=== PATIENT | female | born 1990 | race Two or more races ===

== ENCOUNTER 2019-01-03 06:59 | Inpatient (IN) | payer BC ==
[~2019-01-03] VITALS: Ht 157.5 cm; Wt 56.7 kg
[2019-01-03] MEDS ORDERED: LIDOCAINE VISCOUS 2% UD 15 ML UDC ONE (07:29)
[2019-01-03] MEDS ORDERED: IV NS 0.9% 1,000 ML BAG IV ONE (07:30)
[2019-01-03] MEDS ORDERED: MAG HYDROX/AL HYDROX/SIMETH 30 ML UDC PO ONE (07:30)
[2019-01-03] MEDS ORDERED: LIDOCAINE VISCOUS 2% UD 15 ML UDC MM ONE (07:30)
[2019-01-03] MEDS ORDERED: MAG HYDROX/AL HYDROX/SIMETH 30 ML UDC ONE (07:30)
[2019-01-03] MEDS ORDERED: KETOROLAC TROMETHAMINE INJ 30 MG/ML VIAL ONE (07:30)
--- NOTE | 2019-01-03 07:35 | NUR ---
REPORT GIVEN TO JOE SHORT FOR KASIA
[2019-01-03] MEDS: KETOROLAC TROMETHAMINE INJ 30 MG/ML VIAL IV ONE ×2 (07:39→07:51)
[2019-01-03 07:43] LABS: BASOPHILS % (AUTO) 1.1 % (0.0-2.0); EOSINOPHILS % (AUTO) 2.3 % (0.0-6.0); HEMATOCRIT 39 % (33-45); HEMOGLOBIN 13.1 g/dL (11.5-14.8); LYMPHOCYTES % (AUTO) 35.4 % (20.0-44.0); MEAN CORPUSCULAR HGB CONC 33 g/dl (31.0-36.0); MEAN CORPUSCULAR VOLUME 91 fL (82-100); MONOCYTES # (AUTO) 0.3 /CMM (0.1-1.30); MONOCYTES % (AUTO) 10.9 % (2.0-12.0); NEUTROPHILS # (AUTO) 1.4 /CMM (1.8-8.9); NEUTROPHILS % (AUTO) 50.3 % (43.0-81.0); PLATELET COUNT (AUTO) 248 /CMM (150-450); RED BLOOD CELL COUNT(AUTO) 4.33 MIL/uL (4.0-5.2); WHITE BLOOD COUNT (AUTO) 2.8 K/uL (4.3-11.0)
--- NOTE | 2019-01-03 07:50 | NUR ---
RADIOLOGY AT BEDSIDE FOR CHEST XRAY.
[2019-01-03 07:51] LABS: CALCIUM, SERUM 8.8 mg/dL (8.5-10.1); CREATININE 0.8 mg/dL (0.6-1.3); POTASSIUM 3.8 mmol/L (3.5-5.1)
[2019-01-03 07:57] LABS: ALBUMIN 3.3 g/dL (3.4-5.0); BILIRUBIN,DIRECT 0.1 mg/dL (0.0-0.2); BILIRUBIN,TOTAL 0.4 mg/dL (0.2-1.0); TOTAL PROTEIN, SERUM 7.2 g/dL (6.4-8.2)
[2019-01-03 08:04] LABS: D-DIMER 0.33 mg/L(FEU (0.17-0.50)
[2019-01-03] MEDS ORDERED: NITROGLYCERIN 0.4 MG/TAB BOTTLE ONE ×2 (08:18→10:04)
[2019-01-03] MEDS ORDERED: ASPIRIN 325 MG TABLET ONE (08:18)
--- NOTE | 2019-01-03 08:24 | NUR ---
DR TORIBIO AT BEDSIDE FOR EVAL.
[2019-01-03] MEDS ORDERED: METOPROLOL TARTRATE INJ 5 MG/5 ML AMPUL IV ONE ×2 (08:30→09:00)
[2019-01-03] MEDS ORDERED: ASPIRIN 325 MG TABLET PO ONE (08:30)
[2019-01-03] MEDS ORDERED: NITROGLYCERIN 0.4 MG/TAB BOTTLE SL ONE (08:30)
[2019-01-03] MEDS ORDERED: ENOXAPARIN SODIUM 40 MG/0.4 ML DISP.SYRIN SQ ONE (08:30)
--- NOTE | 2019-01-03 08:34 | NUR ---
U/S TECH AT BEDSIDE FOR ECHOCARGIOGRAM
[2019-01-03] MEDS ORDERED: ENOXAPARIN SODIUM 60 MG/0.6 ML DISP.SYRIN SQ ONE (08:36)
[2019-01-03] MEDS ORDERED: METOPROLOL TARTRATE INJ 5 MG/5 ML AMPUL ONE ×2 (08:42→10:03)
[2019-01-03 09:31] LABS: APPEARANCE,URINE Clear (CLEAR); BILIRUBIN,URINE SMALL (NEGATIVE); BLOOD, URINE Negative Ery/uL (NEGATIVE); COLOR,URINE Yellow (YELLOW); KETONES,URINE Trace (NEGATIVE); LEUKOCYTE ESTERASE ,URINE Negative (NEGATIVE); NITRITE, URINE Negative (NEGATIVE); PH,URINE 6.5 (5.0-8.0); PROTEIN,URINE 30 mg/dl (NEGATIVE); UGLUCOSE Negative (NEGATIVE); UROBILINOGEN,URINE 0.2 EU/dL (0.2)
[2019-01-03 09:53] LABS: RBC,URINE 0-2 /HPF (0-2); WBC,URINE 0-2 /HPF (0-3)
[2019-01-03 09:54] LABS: BACTERIA,URINE Rare /HPF (None Seen); SQUAMOUS EPITHELIAL CELL,UR Rare /HPF (None Seen)
[2019-01-03 09:57] LABS: CALCIUM OXALATE CRYSTALS,UR Moderate /HPF (None Seen)
[2019-01-03] MEDS ORDERED: IV NS 0.9% 250 ML IV ONE (10:01)
[2019-01-03] MEDS ORDERED: IOHEXOL-350 100 ML VIAL IV ONE (10:01)
[2019-01-03] MEDS ORDERED: CT SWABBABLE VALVE TRANS SET 1 EA INFUS.SET MC ONE (10:01)
--- NOTE | 2019-01-03 10:02 | NUR ---
PT TO RADIOLOGY FOR CT CARDIAC ANGIOGRAM VIA [facility].
--- NOTE | 2019-01-03 10:09 | NUR ---
REPORT GIVEN TO OLIVIA. PT AWAITING TRANSFER TO FLOOR.
[2019-01-03] MEDS ORDERED: MAG HYDROX/AL HYDROX/SIMETH 30 ML UDC PO PRN (11:00)
[2019-01-03] MEDS ORDERED: ZOLPIDEM TARTRATE 5 MG TABLET PO PRN (11:00)
[2019-01-03] MEDS ORDERED: ONDANSETRON HCL/PF 4 MG/2 ML VIAL IVP PRN (11:00)
[2019-01-03] MEDS ORDERED: HYDROCODONE/APAP 5/325MG 1 EACH TABLET PO PRN (11:00)
[2019-01-03] MEDS ORDERED: MAGNESIUM HYDROXIDE 30 ML UDC PO PRN (11:00)
[2019-01-03] MEDS ORDERED: ACETAMINOPHEN 325 MG TABLET PO PRN (11:00)
[2019-01-03] MEDS ORDERED: Z GUARD REMEDY 2 OZ OINT TP PRN (11:00)
[2019-01-03] MEDS ORDERED: IV NS 0.9% 500 ML IV ONE (11:04)
--- NOTE | 2019-01-03 11:17 | NUR ---
TRANSFERED TO FLOOR IN STABLE CONDITION.
[2019-01-03] MEDS ORDERED: ENOXAPARIN SODIUM 40 MG/0.4 ML DISP.SYRIN SQ SCH (11:30)
--- NOTE | 2019-01-03 11:30 | NUR ---
OILER HELPER OPENING NOTES RECEIVED PATIENT IN STABLE CONDITION. IN NO APPARENT DISTRESS. BEDSIDE RAILS ARE UPX2. BED IS LOCKED AND LOWERED. CALL LIGHT IS WITHIN REACH. IV LINE IS INTACT AND PATENT. WILL CONTINUE TO MONITOR PATIENT.
[2019-01-03] MEDS ORDERED: TAZA30CR TD (11:31)
[2019-01-03] MEDS ORDERED: DOXY50TA13 PO (11:31)
[2019-01-03] MEDS ORDERED: SPIR50TA5 PO (11:31)
[2019-01-03 12:00] VITALS: BP 103/53
[2019-01-03] MEDS: INDOMETHACIN 25 MG CAPSULE PO SCH ×2 (12:23→16:59)
[2019-01-03] MEDS: AMOXICILLIN TRIHYDRATE 250 MG CAPSULE PO SCH ×2 (15:02→21:29)
[2019-01-03 16:00] VITALS: BP 92/62
--- NOTE | 2019-01-03 18:52 | NUR ---
BUILDING SUPPLIES SALESPERSON RETAIL CLOSING NOTES PATIENT RESTING IN STABLE CONDITION. IN NO APPARENT DISTRESS. BEDSIDE RAILS ARE UPX2. BED IS LOCKED AND LOWERED. CALL LIGHT IS WITHIN REACH. IV LINE IS INTACT AND PATENT. WILL ENDORSE CARE TO NIGHT [facility] NURSE FOR KASIA.
--- NOTE | 2019-01-03 19:30 | NUR ---
RN NOTES RECEIVED PT. AWAKE ON BED, A/OX4, AMBULATORY, SR ON TELE MONITOR [id number], DENIES ANY PAIN, NO SOB, CALL LIGHT WITHIN REACH, [id number], CONTINUE TO MONITOR
[2019-01-03 20:00] VITALS: BP 99/68
[2019-01-04] VITALS: BP 94/59
[2019-01-04 04:00] VITALS: BP 92/54
[2019-01-04] MEDS: AMOXICILLIN TRIHYDRATE 250 MG CAPSULE PO SCH (05:35)
--- NOTE | 2019-01-04 06:26 | NUR ---
RN NOTES SLEEPING BUT AROUSABLE, DENIES PAIN, NO SOB, CALL LIGHT WITHIN REACH, [id number], PT. NEEDS ATTENDED
[2019-01-04 07:11] LABS: BASOPHILS # (AUTO) 0.1 /CMM (0.0-0.2); BASOPHILS % (AUTO) 2.3 % (0.0-2.0); EOSINOPHILS % (AUTO) 4.1 % (0.0-6.0); HEMATOCRIT 39 % (33-45); HEMOGLOBIN 12.8 g/dL (11.5-14.8); LYMPHOCYTES # (AUTO) 1.5 /CMM (0.8-4.8); LYMPHOCYTES % (AUTO) 56.8 % (20.0-44.0); MEAN CORPUSCULAR HGB CONC 33 g/dl (31.0-36.0); MEAN CORPUSCULAR VOLUME 91 fL (82-100); MONOCYTES # (AUTO) 0.4 /CMM (0.1-1.30); MONOCYTES % (AUTO) 14.1 % (2.0-12.0); NEUTROPHILS # (AUTO) 0.6 /CMM (1.8-8.9); NEUTROPHILS % (AUTO) 22.7 % (43.0-81.0); PLATELET COUNT (AUTO) 241 /CMM (150-450); RED BLOOD CELL COUNT(AUTO) 4.25 MIL/uL (4.0-5.2); WHITE BLOOD COUNT (AUTO) 2.6 K/uL (4.3-11.0)
--- NOTE | 2019-01-04 07:11 | NUR ---
TEXTILE COLORIST FORMULATOR NOTES PATIENT IN BED ALERT ORIENTED X 4. NO ACUTE DISTRESS NOTED. BREATHING UNLABORED. DENIED ANY PAIN. IV ACCESS PATENT AND INTACT, NO REDNESS OR SWELLING NOTED. SAFETY MEASURES IN PLACE. CALL LIGHT WITHIN REACH. WILL CONTINUE TO MONITOR ACCORDINGLY.
[2019-01-04] MEDS ORDERED: PANTOPRAZOLE 40 MG TABLET.DR PO SCH (07:30)
[2019-01-04 07:34] LABS: CALCIUM, SERUM 8.9 mg/dL (8.5-10.1); CREATININE 0.8 mg/dL (0.6-1.3); MAGNESIUM 2.4 mg/dL (1.8-2.4); PHOSPHORUS 4.2 mg/dL (2.5-4.9); POTASSIUM 4.1 mmol/L (3.5-5.1)
[2019-01-04 08:00] VITALS: BP 98/66
--- NOTE | 2019-01-04 08:45 | NUR ---
VEGETABLE FARM WORKER NOTES SEEN AND EVALUATED BY DR GALE TORIBIO WITH NEW ORDERS MADE, NOTED AND CARRIED OUT.
[2019-01-04] MEDS: INDOMETHACIN 25 MG CAPSULE PO SCH (08:58)
[2019-01-04] MEDS ORDERED: ENOXAPARIN SODIUM 40 MG/0.4 ML DISP.SYRIN SQ SCH (09:00)
[2019-01-04] MEDS ORDERED: IBUP-1955 PO (09:39)
--- NOTE | 2019-01-04 09:46 | NUR ---
MS RN NOTES SEEN AND EVALUATED BY DR HOYT WITH NEW ORDERS MADE, NOTED AND CARRIED OUT.
--- NOTE | 2019-01-04 10:35 | NUR ---
MS RN NOTES PATIENT DISCHARGE HOME WITH STABLE VITAL SIGNS. NO ACUTE DISTRESS NOTED. BREATHING UNLABORED. DENIED ANY PAIN. IV ACCESS REMOVED, NO BLEEDING, NO REDNESS OR SWELLING NOTED. DISCHARGE INSTRUCTIONS GIVEN TO THE PATIENT INCLUDING NEW PRESCRIPTION, FOLLOW UP WITH DR GALE TORIBIO AND PRIMARY DOCTOR FOLLOW UP, VERBALIZED UNDERSTANDING. ALL BELONGINGS ACCOUNTED FOR. SKIN IS INTACT. ASSISTED TO THE LOBBY PICKED UP VIA PRIVATE CAR IN STABLE CONDITION.
== END 2019-01-04 10:30 | disposition home or self-care (01) | DRG 316 ==
LOC: ER 07:00 → TELE 10:11 → MED 01-04 09:28
PROVIDERS: ADMIT Student in an Organized Health Care Education/Training Program; ATTEND Student in an Organized Health Care Education/Training Program
DX: I31.9 Disease of pericardium, unspecified (principal); D70.9 Neutropenia, unspecified; Z79.82 Long term (current) use of aspirin; Z79.899 Other long term (current) drug therapy; R55 Syncope and collapse
CPT/HCPCS: 36415; 71045-TC; 75574; 80048-TC; 80061-TC; 80076-TC; 80305; 81000-TC; 83735-TC; 84100-TC; 84484-TC; 84703-TC; 85025-TC; 85378-TC; 85652-TC; 85730-TC; 86140-TC; 87040-TC; 87081-TC; 93307-TC; G0378; J1650; J1885; J3490; J7030; J7040; J7050; Q9967

== ENCOUNTER 2019-01-12 03:31 | Emergency (ER) | payer BC ==
[~2019-01-12] VITALS: Ht 157.5 cm; Wt 56.7 kg
[~2019-01-12 03:31] MED LIST: DOXY50TA13 PO; IBUP-1955 PO; TAZA30CR TD
[2019-01-12 03:43] VITALS: BP 130/83
--- NOTE | 2019-01-12 03:50 | NUR ---
Pt BIBSELF FROM HOME C/O CP. Pt WAS ADMITTED HERE AT [facility] LAST WEEK FOR PERICARDITIS. Pt IS EXPERIENCING SAME CP LAST TIME WHEN SHE WAS ADMITTED. -SOB. -N/V. -DIZZINESS. -SYNCOPE. Pt IS A/OX4, VERBAL, ABLE TO MAKE NEEDS KNOWN. WAITING COMFORTABLY IN BED. Pt BEING SEEN BY MD AT BEDSIDE. WILL CONTINUE TO MONITOR Pt AND CARRY OUT MD ORDERS.
[2019-01-12] MEDS ORDERED: IV NS 0.9% 1,000 ML BAG IV ONE (04:00)
[2019-01-12] MEDS ORDERED: KETOROLAC TROMETHAMINE INJ 30 MG/ML VIAL IV ONE (04:00)
[2019-01-12] MEDS ORDERED: KETOROLAC TROMETHAMINE INJ 30 MG/ML VIAL ONE (04:07)
[2019-01-12 04:16] LABS: BASOPHILS # (AUTO) 0.1 /CMM (0.0-0.2); BASOPHILS % (AUTO) 1.2 % (0.0-2.0); EOSINOPHILS % (AUTO) 3.5 % (0.0-6.0); HEMATOCRIT 39 % (33-45); HEMOGLOBIN 12.9 g/dL (11.5-14.8); LYMPHOCYTES # (AUTO) 2.1 /CMM (0.8-4.8); LYMPHOCYTES % (AUTO) 43.2 % (20.0-44.0); MEAN CORPUSCULAR HGB CONC 33 g/dl (31.0-36.0); MEAN CORPUSCULAR VOLUME 91 fL (82-100); MONOCYTES # (AUTO) 0.5 /CMM (0.1-1.30); NEUTROPHILS # (AUTO) 2.1 /CMM (1.8-8.9); NEUTROPHILS % (AUTO) 42.1 % (43.0-81.0); PLATELET COUNT (AUTO) 337 /CMM (150-450)
[2019-01-12 04:23] LABS: CALCIUM, SERUM 8.7 mg/dL (8.5-10.1); CARBON DIOXIDE 28 mmol/L (21-32); CHLORIDE 106 mmol/L (98-107); CREATININE 0.8 mg/dL (0.6-1.3); GLUCOSE 93 mg/dL (74-106); POTASSIUM 3.7 mmol/L (3.5-5.1); SODIUM SERUM 143 mmol/L (136-145); UREA NITROGEN, BLOOD 20 mg/dL (7-18)
--- NOTE | 2019-01-12 05:21 | NUR ---
Patient discharged to home in stable condition. Written and verbal after care instructions given. Patient verbalizes understanding of instruction. IV removed. Catheter intact and site benign. Pressure and 4x4 applied to site. No bleeding noted.
== END 2019-01-12 05:23 | disposition home or self-care (01) ==
LOC: ER 03:33
DX: R07.89 Other chest pain (principal); Z60.2 Problems related to living alone
CPT/HCPCS: 36415; 71045; 80048; 84484; 85025; 85730; 93005; 96374; 99284; A4606; J1885; J7030